=== PATIENT | female | born 1955 | race Caucasian/White ===

== ENCOUNTER → 2017-04-30 | Outpatient (CLI) | payer OTHER ==
[~2017-04-30] MED LIST: ARTIFICIAL TEA1 EAC1 OPHTHALMIC; CELEXA20 MG PO; ESTRACE0.5 MG PO; HYDROCODON-ACE1 EAC7 PO; LYRICA150 MG PO; LYRICA200 MG PO; NICOTINE TRANSD21 M1 TRANSDERM; ROBAXIN 750 MG750 M1 PO; SPIRIVA INH; SYMBICORT160 MCG/4. INH; TRAZODONE 150150 M1 PO; TRAZODONE HCL50 MG PO; Trazodone HCL PO; WOMEN'S DAILY1 EAC2 PO; XARELTO10 MG PO
[2017-04-30 08:52] LABS: CREATININE 0.8 mg/dL (0.6-1.0)
== END ==
LOC: CAT 08:03
PROVIDERS: Family Medicine
DX: C34.90 Malignant neoplasm of unspecified part of unspecified bronchus or lung (principal)

== ENCOUNTER → 2017-10-20 | Outpatient (CLI) | payer OTHER | LOC: RAD 11:46 | DX: J98.11 Atelectasis (principal); Z85.118 Personal history of other malignant neoplasm of bronchus and lung; Z98.890 Other specified postprocedural states ==

== ENCOUNTER → 2018-03-05 | Outpatient (CLI) | payer OTHER | LOC: RAD 10:31 | DX: Z12.31 Encounter for screening mammogram for malignant neoplasm of breast (principal) ==

== ENCOUNTER → 2018-07-22 | Outpatient (CLI) | payer OTHER | LOC: NUC 09:04 | DX: R10.11 Right upper quadrant pain (principal) ==

== ENCOUNTER → 2018-07-28 | Outpatient (CLI) | payer OTHER ==
[2018-07-28 10:55] LABS: CREATININE 0.8 mg/dL (0.6-1.0)
== END ==
LOC: CAT 09:53
PROVIDERS: Nurse Practitioner
DX: J43.9 Emphysema, unspecified (principal); Z85.118 Personal history of other malignant neoplasm of bronchus and lung

== ENCOUNTER 2018-10-09 11:31 | Emergency (ER) | payer OTHER ==
[~2018-10-09] VITALS: Ht 165.1 cm; Wt 69.8 kg
[~2018-10-09 11:31] MED LIST changes: +CELEXA40 MG PO; -TRAZODONE HCL50 MG PO
[2018-10-09] MEDS ORDERED: NORTRIPTYLINE H10 M2 PO (13:13)
[2018-10-09] MEDS ORDERED: XANAX 0.25 MG0.25 MG PO (13:13)
[2018-10-09] MEDS ORDERED: FLEXERIL PO (13:14)
[2018-10-09] MEDS ORDERED: PERCOCET 7.5-31 EACH PO (13:15)
[2018-10-09 13:25] LABS: ANION GAP 6 mmol/L (7-16); BUN 8 mg/dL (7-18); CALCIUM 9.8 mg/dL (8.5-10.1); CHLORIDE 97 mmol/L (98-107); CO2 31 mmol/L (21-32); CREATININE 0.7 mg/dL (0.6-1.0); GLUCOSE 95 mg/dL (74-106); SODIUM 134 mmol/L (136-145)
[2018-10-09 13:29] LABS: ABSOLUTE NEUTROPHILS 6.5 thou/uL (1.4-8.2); BASOPHILS 0.5 % (0.0-2.0); EOSINOPHILS 1.3 % (0.0-3.0); HEMATOCRIT 39.1 % (37.0-47.0); HEMOGLOBIN 13.2 gm/dL (12.0-15.0); LYMPHOCYTES 22.8 % (24.0-44.0); MCH 31.6 pg (26.0-34.0); MCHC 33.6 g/dL (28.0-37.0); MCV 93.9 fL (80.0-100.0); MONOCYTES 8.6 % (1.0-8.0); PLATELET COUNT 261 thou/uL (150-400); POLYS 66.8 % (36.0-66.0); RBC 4.17 mil/uL (4.20-5.00); RDW 13.9 % (10.5-14.5); WBC 9.7 thou/uL (4.0-11.0)
[2018-10-09 13:34] LABS: TROPONIN-I <0.06 ng/mL (<0.06)
--- NOTE | 2018-10-09 13:41 | EKG ---
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
[2018-10-09 15:44] VITALS: BP 147/88
== END 2018-10-09 15:45 | disposition home or self-care (01) ==
LOC: ER 11:31
PROVIDERS: Emergency Medicine
DX: R07.89 Other chest pain (principal); Z96.652 Presence of left artificial knee joint; Z98.890 Other specified postprocedural states; Z90.49 Acquired absence of other specified parts of digestive tract; Z86.718 Personal history of other venous thrombosis and embolism

== ENCOUNTER 2019-01-21 05:27 | Day surgery (SDC) | payer OTHER ==
[~2019-01-21] VITALS: Ht 167.6 cm; Wt 54.4 kg
[~2019-01-21 05:27] MED LIST changes: +FLEXERIL PO; +NORTRIPTYLINE H10 M2 PO; +PERCOCET 7.5-31 EACH PO; +VENTOLIN HFA 1818 GM INH; +XANAX 0.25 MG0.25 MG PO
[2019-01-21 07:30] VITALS: BP 139/79
--- NOTE | 2019-01-25 06:14 | O ---
[facility] [place] [address] OPERATIVE REPORT Name: FLIP GERBER Room #: DEP [facility].#: [id number] Admission: 01/21/19 ������������������ Attend Phys: Ulises Umanzor MD Discharge: 01/21/19 ������������������ Date of : 53 Report #: [id number] THIS REPORT FOR: //name// CC: Candido Lincoln DATE OF SERVICE: 01/21/2019 CLINICAL TRIAL ASSOCIATE: None. PREOPERATIVE DIAGNOSIS: Bilateral upper lid ptosis with superior visual field defects both eyes. POSTOPERATIVE DIAGNOSIS: Bilateral upper lid ptosis with superior visual field defects both eyes. OPERATION PERFORMED: Bilateral upper lid functional ptosis repair. CLINICAL TRIAL ASSOCIATE: None. ANESTHESIA: Local with IV sedation. COMPLICATIONS: None. INDICATIONS FOR PROCEDURE: This patient has bilateral upper lid ptosis with superior visual field loss both eyes. Visual field testing demonstrates dense superior visual defects. Retesting with the upper lid elevated shows an improvement in visual field loss of over 30% and in excess of 12 degrees. The current procedure is being undertaken in order to improve the patient's visual function. Informed consent was obtained to include but not limited to the risk of loss of vision, bleeding, infection, scarring, failure to improve the problem and need for further surgery, such as adjustment of lid height. DESCRIPTION OF PROCEDURE: The patient was taken to the operating room, where 2% Xylocaine with epinephrine mixed with equal parts of 0.75% Marcaine with Wydase was administered transcutaneously to each upper lid. The patient was then prepped and draped in the usual sterile fashion. An upper lid crease incision was then made bilaterally and the dissection was carried down until the orbital septum was identified. The orbital septum was then cleared and the preaponeurotic fat identified. The levator aponeurosis was [facility] [address] [place] [address] OPERATIVE REPORT Name: FLIP GERBER Room #: DEP [facility]#: [id number] Admission: 01/21/19 ������������������ Attend Phys: Ulises Umanzor MD Discharge: 01/21/19 ������������������ Date of : 53 Report #: [id number] then disinserted from the anterior surface of the tarsal plate and dissected free in the avascular Donis's muscle plane. The aponeurosis was then advanced and reattached to the anterior surface of the tarsal plate with interrupted mattress 6-0 Novafil sutures on each side, adjusting for height and contour. The redundant aponeurosis was then amputated. The incision was then closed with multiple interrupted 6-0 chromic sutures that were used to recreate an upper lid crease. The skin was closed with a running 6-0 plain gut suture. The wound was then cleaned and dressed with ophthalmic antibiotic ointment followed by a Telfa pad. The patient was transported to the recovery area, having tolerated the procedure well with no anesthesia or operative complications being noted. ��������������������������������������������� <ELECTRONICALLY SIGNED> ���������������������������������������� By: Ulises Umanzor MD ��������������������������������������������� 01/25/19 0614 0809 Ulises Umanzor MD /nt
== END 2019-01-21 08:50 | disposition home or self-care (01) ==
LOC: OR 05:27 → TBA 05:28 → OR 08:50
DX: H02.413 Mechanical ptosis of bilateral eyelids (principal); H53.462 Homonymous bilateral field defects, left side; H53.461 Homonymous bilateral field defects, right side; J43.9 Emphysema, unspecified; F32.9 Major depressive disorder, single episode, unspecified; F41.9 Anxiety disorder, unspecified; G89.29 Other chronic pain; M54.9 Dorsalgia, unspecified; Z87.891 Personal history of nicotine dependence; Z85.118 Personal history of other malignant neoplasm of bronchus and lung; Z90.49 Acquired absence of other specified parts of digestive tract; Z79.899 Other long term (current) drug therapy; Z96.652 Presence of left artificial knee joint; Z86.718 Personal history of other venous thrombosis and embolism; Z79.01 Long term (current) use of anticoagulants
CPT/HCPCS: 50010; 50101; 50386; 50398; 51636; 56528; 56531; 62110; 62850; 70005

== ENCOUNTER 2019-03-01 08:54 | Inpatient (IN) | payer OTHER ==
[~2019-03-01] VITALS: Ht 167.6 cm; Wt 53.1 kg
--- NOTE | ~2019-03-01 | O ---
[facility] [place] [address] OPERATIVE REPORT Name: FLIP GERBER Room #: 150-1 ADM IN M.R.#: [id number] Admission: 05/12/19 Attend Phys: Melvin Castellanos MD Discharge: Date of : 53 Report #: [id number] THIS REPORT FOR: //name// CC: Ronny Castellanos DATE OF SERVICE: 05/12/2019 PREOPERATIVE DIAGNOSIS: Right knee osteoarthritis. POSTOPERATIVE DIAGNOSIS: Right knee osteoarthritis. PROCEDURE: Right total knee arthroplasty using Navio robotic assistance. SURGEON: Melvin Castellanos MD. HOSPICE CARE TRANSITIONS COORDINATOR: Martha Coello PA-C. ANESTHESIA: LMA with an adductor canal block. INDICATIONS FOR HOSPICE CARE TRANSITIONS COORDINATOR: Throughout the case, extensive retraction and manipulation of knee was required. This was afforded to me by my farm assistant. IMPLANTS: [employer] Journey II Oxinium BCS size 3 femur, size 3 tibia, size 10 polyethylene and size 32 patella. TOURNIQUET TIME: 56 minutes. ESTIMATED BLOOD LOSS: 25 mL. COMPLICATIONS: None. SPECIMENS: None. CONDITION UPON LEAVING THE OPERATING ROOM: Stable. INDICATIONS FOR PROCEDURE: The patient is a 64-year-old female with right knee osteoarthritis. She had failed conservative measures for this and after discussion with her, she elected for right total knee arthroplasty. DESCRIPTION OF PROCEDURE: Risks, benefits, alternatives, complications were discussed in detail with the patient including, but not limited to risk of anesthesia, risk of damage to nerves, arteries, blood vessels, risk for infection, bleeding, risk for continued knee pain, need for reoperation. Informed consent was obtained from the patient. Right knee was appropriately marked in the preoperative holding area. IV Ancef was given for preoperative [address] [address] OPERATIVE REPORT Name: FLIP GERBER Room #: 150-1 ADM IN M.R.#: [id number] Admission: 05/12/19 Attend Phys: Melvin Castellanos MD Discharge: Date of : 53 Report #: [id number] antibiotics. She was brought to the operating room and placed in supine position on operating room table. LMA anesthesia was induced without complication. Tourniquet was placed on the right thigh. Right lower extremity was prepped and draped in normal sterile fashion. Timeout was performed properly identifying the patient and procedure as well as instrumentation. All in the operating room were in agreement. Right lower extremity was exsanguinated, tourniquet was inflated. Tourniquet time was 56 minutes. Standard midline approach to knee was made with 10 blade through the skin. Dissection was taken down sharply to the fascia and deep flaps were developed medially and laterally. Fresh 10 blade was used to make a medial parapatellar arthrotomy and the knee was inspected. There was severe tricompartment osteoarthritis. ACL and PCL were removed sharply. Reference pins were placed in the femur and the tibia of the knee was digitally mapped using the [employer] robotic system. Intraoperative plan was made and we sized a size 3 femur, a size 3 tibia with a size 10 spacer. After acceptance of the intraoperative plan, the distal femoral cut was made with the Navio bur. The cutting block for the size 3 femur was then placed and the chamfer cuts were made. Attention was turned to the tibia. Remainder of the menisci removed with Bovie cautery. Tibial resection guide was pinned into place using the Navio for placement of the guide. Tibial resection was made. After this, flexion and extension gaps were checked and found to have good balance in flexion and extension both medially and laterally. Tibia was sized, found to be a size 3. Size 3 tibial trial was placed, size 3 femoral trial was placed and the box cut was made. This was then trialled with size 9 and then a size 10 polyethylene. The size 10 polyethylene demonstrated a millimeter of medial laxity with 2-3 mm of lateral laxity throughout range of motion. It was felt this was acceptable, 9 mm was then resected from the posterior surface of the patella and a size 32 patellar trial was placed. Knee was taken through range of motion, found to have good patellar tracking. After this, trial components were removed. Bony ends were thoroughly irrigated with normal saline. A final size 3 tibia, size 3 Journey II BCS Oxinium femur and a size 32 patella were cemented into place using standard cementation techniques. While the cement cured, a periarticular injection consisting of morphine, ropivacaine, epinephrine, Toradol placed around the knee joint capsule. After the cement cured, tourniquet was deflated. Hemostasis was obtained with Bovie cautery. Final size 10 polyethylene was placed. A gram of vancomycin was placed deep in the joint. The fascia was closed with 0 Vicryl, skin was closed with 2-0 Vicryl, 3-0 Monocryl. Dermabond and a JESSICA dressing was applied. The patient tolerated this procedure well and went to recovery room under care of anesthesia postoperatively. By: 0933 1020 Melvin Castellanos MD /rickey
[2019-05-03 09:00] LABS: URINE BILIRUBIN NEGATIVE (Negative); URINE BLOOD NEGATIVE (Negative); URINE CLARITY CLEAR; URINE COLOR YELLOW; URINE GLUCOSE-RANDOM* NEGATIVE (Negative); URINE KETONES NEGATIVE (Negative); URINE LEUKOCYTES-REFLEX NEGATIVE (Negative); URINE NITRITE-REFLEX NEGATIVE (Negative); URINE PROTEIN (DIPSTICK) NEGATIVE (Negative); URINE UROBILINOGEN 0.2 E.U./dl (0.2-1.0)
[2019-05-03 09:01] LABS: HEMATOCRIT 43.1 % (37.0-47.0); HEMOGLOBIN 14.4 gm/dL (12.0-15.0); MCH 31.1 pg (26.0-34.0); MCHC 33.3 g/dL (28.0-37.0); MCV 93.5 fL (80.0-100.0); RBC 4.61 mil/uL (4.20-5.00); RDW 13.7 % (10.5-14.5)
[2019-05-03 09:07] LABS: CALCIUM 9.5 mg/dL (8.5-10.1); CREATININE 0.8 mg/dL (0.6-1.0); POTASSIUM 4.6 mmol/L (3.5-5.1)
[2019-05-03 09:10] LABS: INR 1.1; PROTIME 11.2 Seconds (9.3-11.4)
[2019-05-12 06:21] VITALS: BP 135/83
[2019-05-12 12:46] VITALS: BP 126/79
--- NOTE | 2019-05-12 14:23 | NUR ---
64 YO FEMALE TRANSFERED FROM PACU. A&OX4, IV INTACT IN L FA. RACHEL YAN AND SCD'S IN PLACE. JESSICA DRSG IS C/D/I. ORIENTED PT TO ROOM/ CALL LIGHT W/I REACH. NUMBNESS TO R TOES NOTED. WILL CONT POC.
--- NOTE | 2019-05-12 16:53 | NUR ---
ASSESSMENT-PT WILL STAY WITH HER SIGNIFICANT OTHER BOO AT DC. PT HAS A ROLLER WALKER AT HOME FROM WHEN SHE HAD HER OTHER KNE DONE IN 2013. PT HAS HOME 02 FROM [facility] & has a portable tank. pt has an outpt appt set-up for fri 3BUT SHE SAYS THIS MAY NEED TO BE CHANGED BECAUSE SHE WAS ORIGINALLY SCHEDULED TO HAVE SURGERY NEXT WEEK BUT IT Was MOVED UP TO TODAY. INFORMED HER TO CHECK WITH THE DR TOMORROW ABOUT HER OUTPT APPT FOR THERAPY. FOLLOWING TO ASSIST WITH DC PLANNING.
[2019-05-12 16:57] VITALS: BP 128/84
[2019-05-12 19:51] VITALS: BP 135/84
[2019-05-12 23:33] VITALS: BP 108/66
[2019-05-13 04:54] VITALS: BP 108/71
[2019-05-13 05:36] LABS: HEMATOCRIT 28.8 % (37.0-47.0); HEMOGLOBIN 9.7 gm/dL (12.0-15.0); MCH 31.5 pg (26.0-34.0); MCHC 33.7 g/dL (28.0-37.0); MCV 93.5 fL (80.0-100.0); RBC 3.09 mil/uL (4.20-5.00); RDW 13.4 % (10.5-14.5); WBC 10.7 thou/uL (4.0-11.0)
[2019-05-13 07:40] VITALS: BP 121/77
[2019-05-13] MEDS ORDERED: ELIQUIS2.5 MG PO (12:56)
[2019-05-13 16:36] VITALS: BP 124/68
[2019-05-13 19:22] VITALS: BP 145/93
--- NOTE | 2019-05-13 19:48 | NUR ---
ASSUMED CARE OF PATIENT AT 0715, PATIENT ALERT AND ORIENTED X 4. PATIENT UP WITH ASSIST X 1 WITH WALKER. PATIENT HAD RIGHT TKR, JESSICA DRESSING IN PLACE, C/D/I. PATIENT WORKED WITH PHYSICAL THERAPY/LIZ, OK TO DISCHARGE TO HOME. PATIENT'S PAIN LEVEL WENT UP, BLOCK WORE OFF. SHIRLEY HERE THIS AFTERNOON, AND WROTE DISCHARGE ORDER TO HOME, THIS RN INFORMED SHIRLEY/TERMITE TREATER HELPER THAT PATIENT HAVING TOO MUCH PAIN, UNABLE TO DISCHARGE, SHE LEFT DISCHARGE ORDERS IN COMPUTER AND STATES PATIENT COULD GO HOME IN AM, SCRIPTS LEFT IN CHART FOR DISCHARGE. PATIENT HAS LEFT FOREARM IV IN PLACE, IV FLUIDS D/C AFTER BAG ENDED THIS AM. PATIENT RECEIVED MORPHINE 2 MG IV X 2 AND ALERNATED WITH OXYCODONE 1 TABLET, PAIN LEVEL STARTING TO IMPROVE BY THE END OF THE SHIFT, ICE PACKS USED MOST OF THE DAY FOR PAIN RELIEF. WILL CONTINUE TO MONITOR.
[2019-05-13 23:43] VITALS: BP 140/78
[2019-05-14 05:49] LABS: HEMOGLOBIN 10.9 gm/dL (12.0-15.0); MCH 31.6 pg (26.0-34.0); MCHC 33.9 g/dL (28.0-37.0); MCV 93.4 fL (80.0-100.0); RBC 3.43 mil/uL (4.20-5.00); RDW 13.9 % (10.5-14.5); WBC 11.5 thou/uL (4.0-11.0)
[2019-05-14 06:05] VITALS: BP 144/87
--- NOTE | 2019-05-14 07:41 | NUR ---
MANAGEMENT PROFESSIONAL NOTE. ASSUMED CARE OF PT @1900. ASSESSMENT COMPLETED. PT C/O OF PAIN IN RIGHT KNEE AND WAS MEDICATED APPROPRAITELY. RIGHT KNEE LOOKS SWOLLEN, BRUISED WITH NO DRAINAGE. PT IS ABLE TO AMBULATE TO THE BATHROOM WITH A WALKER. PAIN WAS CONTROLLED OVERNIGHT. FALL PREC IN PLACE. CALL COFFEY WITHIN REACH
[2019-05-14 07:54] VITALS: BP 146/99
[2019-05-14 08:00] VITALS: BP 146/99
[2019-05-14 16:23] VITALS: BP 146/99
--- NOTE | 2019-05-14 17:44 | NUR ---
PATIENT DISCHARGED HOME AT THIS TIME. SHE IS ALERT ORIENTED X4. SHE IS STILL HAVING PAIN TO RIGHT KNEE. EDUCATED ON HOW TO MANAGE PAIN TO THAT KNEE. DAUGHTER HERE AND EDUCATED BOTH OF THEM. WILL CONT WIHT PLAN OF CARE.
== END 2019-05-14 17:46 | disposition home or self-care (01) | DRG 470 ==
LOC: OR 08:54 → EDSTATUS 08:55 → PRE 09:04 → TBA 05-12 05:54 → 4E 05-12 05:54 → PRE 05-12 08:18 → 4E 05-12 12:38 → PRE 05-12 15:33 → ENTRNSPT 05-14 16:46 → 4E 05-14 17:46 → PRE 05-17 08:21
PROVIDERS: ADMIT Orthopaedic Surgery
PROC: 0SRC069 Replacement of Right Knee Joint with Oxidized Zirconium on Polyethylene Synthetic Substitute, Cemented, Open Approach (ICD-10-PCS; principal; 2019-05-12)
PROC: 8E0Y0CZ Robotic Assisted Procedure of Lower Extremity, Open Approach (ICD-10-PCS; principal; 2019-05-12)
DX: M17.11 Unilateral primary osteoarthritis, right knee (principal); Z91.048 Other nonmedicinal substance allergy status; Z79.899 Other long term (current) drug therapy
CPT/HCPCS: 10783; 50010; 50101; 50415; 50954; 51130; 51225; 53000; 53078; 54118; 55372; 56527; 56528; 57095; 57103; 57110; 57127; 57179; 62110; 62900; 64043; 65060; 70005

== ENCOUNTER → 2019-07-07 | Outpatient (CLI) | payer OTHER ==
[~2019-07-07] MED LIST changes: +ELIQUIS2.5 MG PO; +LEVAQUIN 500 M500 M3 PO
[2019-07-07 16:47] LABS: CREATININE 0.7 mg/dL (0.6-1.0)
== END ==
LOC: CAT 15:55
PROVIDERS: Nurse Practitioner
DX: J43.9 Emphysema, unspecified (principal); I25.10 Atherosclerotic heart disease of native coronary artery without angina pectoris; K86.89 Other specified diseases of pancreas; M85.80 Other specified disorders of bone density and structure, unspecified site; M47.814 Spondylosis without myelopathy or radiculopathy, thoracic region; Z85.118 Personal history of other malignant neoplasm of bronchus and lung

== ENCOUNTER 2019-08-05 06:19 | Day surgery (SDC) | payer OTHER ==
[~2019-08-05] VITALS: Ht 167.6 cm; Wt 54.0 kg
--- NOTE | ~2019-08-05 | O ---
[facility] [address] OPERATIVE REPORT Name: FLIP GERBER Room #: REG [facility]#: [id number] Admission: 08/05/19 Attend Phys: Ulises Umanzor MD Discharge: Date of : 53 Report #: [id number] THIS REPORT FOR: //name// CC: Ronny Umanzor DATE OF SERVICE: 08/05/2019 SURGEON: Ulises Umanzor MD IT OPERATIONS MANAGER: None. PREOPERATIVE DIAGNOSIS: Bilateral upper lid dermatochalasia with superior visual field defect. POSTOPERATIVE DIAGNOSIS: Bilateral upper lid dermatochalasia with superior visual field defect. OPERATION PERFORMED: Bilateral upper lid functional blepharoplasty. ANESTHESIA: Local with IV sedation. COMPLICATIONS: None. INDICATIONS FOR SURGERY: This patient has acquired upper lid dermatochalasia with superior visual field loss both eyes because of excessive upper lid tissues to include skin and fat. Visual field testing demonstrates dense superior visual defects. Retesting with the upper lid elevated shows an improvement in visual field loss of over 30% and in excess of 12 degrees. The current procedures are undertaken in order to improve the patient's visual function. Informed consent was obtained to include but not limited to the loss of vision, bleeding, infection, scarring, failure to improve the problem and need for further surgery. DESCRIPTION OF OPERATION: The patient was taken to the operating room, where 2% Xylocaine with epinephrine mixed with equal parts of 0.75% Marcaine with Wydase was administered transcutaneously to each upper lid. The patient was then prepped and draped in the usual sterile fashion and a skin-marking pen was then utilized to outline an upper lid crease that was symmetrical on each side. Graefe forceps were then used to quantitate the redundant upper lid skin and it was similarly outlined. The incisions were then made with Vijay scissors and a skin-muscle flap removed from each side with high-temp cautery. Hemostasis was achieved with the monopolar cautery as it was throughout the case. The [address] [address] OPERATIVE REPORT Name: MANISHA GERBERMIKE Hernandez Room #: REG [facility].#: [id number] Admission: 08/05/19 Attend Phys: Ulises Umanzor MD Discharge: Date of : 53 Report #: [id number] orbital septum was then identified and the central and medial fat pads were inspected. The redundant soft tissue was then sculpted with the monopolar cautery. The upper lid crease was then reformed with tightening of the pretarsal orbicularis muscle. The upper lid crease was then further reformed with multiple interrupted 6-0 chromic sutures. The skin was then closed with a running 6-0 plain gut suture. The wound was then cleaned and dressed with ophthalmic antibiotic ointment and a nonstick dressing. The patient was transported to the recovery area, where cold compresses were applied, having tolerated the procedure well with no anesthetic or operative complications being noted. By: Ulises Umanzor MD /rickey
[2019-08-05 07:11] VITALS: BP 139/84
== END 2019-08-05 09:36 | disposition home or self-care (01) ==
LOC: OR 06:19 → TBA 09:08 → OR 09:36
DX: H02.834 Dermatochalasis of left upper eyelid (principal); H02.831 Dermatochalasis of right upper eyelid; H53.462 Homonymous bilateral field defects, left side; H53.461 Homonymous bilateral field defects, right side; J43.9 Emphysema, unspecified; F32.9 Major depressive disorder, single episode, unspecified; F41.9 Anxiety disorder, unspecified; Z87.891 Personal history of nicotine dependence; Z90.49 Acquired absence of other specified parts of digestive tract; Z98.890 Other specified postprocedural states; Z90.710 Acquired absence of both cervix and uterus; Z96.651 Presence of right artificial knee joint; Z79.899 Other long term (current) drug therapy; Z85.118 Personal history of other malignant neoplasm of bronchus and lung
CPT/HCPCS: 50010; 50101; 50386; 50398; 51636; 56531; 62110; 62850; 70005

== ENCOUNTER → 2019-09-16 | Outpatient (CLI) | payer OTHER | LOC: NUC 08:04 | DX: R00.2 Palpitations (principal); I48.91 Unspecified atrial fibrillation; J44.9 Chronic obstructive pulmonary disease, unspecified; Z87.891 Personal history of nicotine dependence ==

== ENCOUNTER → 2019-10-05 | Outpatient (CLI) | payer OTHER | LOC: SJCVCIMAG 09:18 | DX: R06.09 Other forms of dyspnea (principal); R00.2 Palpitations; I10 Essential (primary) hypertension; J44.9 Chronic obstructive pulmonary disease, unspecified; Z87.891 Personal history of nicotine dependence; Z91.048 Other nonmedicinal substance allergy status; Z85.118 Personal history of other malignant neoplasm of bronchus and lung ==

== ENCOUNTER → 2020-04-04 | Outpatient (CLI) | payer OTHER | LOC: SJCVC 11:12 | PROVIDERS: ATTEND Internal Medicine Cardiovascular Disease | DX: R94.31 Abnormal electrocardiogram [ECG] [EKG] (principal); I47.1 Supraventricular tachycardia; I10 Essential (primary) hypertension; J44.9 Chronic obstructive pulmonary disease, unspecified; Z79.899 Other long term (current) drug therapy; Z87.891 Personal history of nicotine dependence ==

== ENCOUNTER → 2020-05-02 | Outpatient (CLI) | payer OTHER | LOC: CAT 15:51 | PROVIDERS: ATTEND Internal Medicine Cardiovascular Disease | DX: Z13.6 Encounter for screening for cardiovascular disorders (principal); I25.10 Atherosclerotic heart disease of native coronary artery without angina pectoris; E78.00 Pure hypercholesterolemia, unspecified ==

== ENCOUNTER → 2020-05-03 | Outpatient (CLI) | payer OTHER | LOC: SJCVC 11:12 | PROVIDERS: ATTEND Internal Medicine Cardiovascular Disease | DX: I25.10 Atherosclerotic heart disease of native coronary artery without angina pectoris (principal); R94.31 Abnormal electrocardiogram [ECG] [EKG]; I10 Essential (primary) hypertension; I47.1 Supraventricular tachycardia; J44.9 Chronic obstructive pulmonary disease, unspecified; Z79.899 Other long term (current) drug therapy; Z87.891 Personal history of nicotine dependence ==

== ENCOUNTER → 2020-11-15 | Outpatient (CLI) | payer OTHER | LOC: SJCVC 14:25 | PROVIDERS: ATTEND Internal Medicine Cardiovascular Disease | DX: I47.1 Supraventricular tachycardia (principal); R94.31 Abnormal electrocardiogram [ECG] [EKG]; I25.10 Atherosclerotic heart disease of native coronary artery without angina pectoris; J44.9 Chronic obstructive pulmonary disease, unspecified; I10 Essential (primary) hypertension; Z98.890 Other specified postprocedural states; Z88.8 Allergy status to other drugs, medicaments and biological substances; Z79.82 Long term (current) use of aspirin; Z79.899 Other long term (current) drug therapy; Z87.891 Personal history of nicotine dependence; Z82.49 Family history of ischemic heart disease and other diseases of the circulatory system ==

== ENCOUNTER → 2021-03-22 | Outpatient (CLI) | payer OTHER | LOC: MRI 08:38 | PROVIDERS: ATTEND Nurse Practitioner | DX: M47.817 Spondylosis without myelopathy or radiculopathy, lumbosacral region (principal); M51.27 Other intervertebral disc displacement, lumbosacral region; M48.07 Spinal stenosis, lumbosacral region; M47.815 Spondylosis without myelopathy or radiculopathy, thoracolumbar region ==

== ENCOUNTER → 2021-04-26 | Outpatient (CLI) | payer OTHER | LOC: RAD 13:49 | DX: M47.816 Spondylosis without myelopathy or radiculopathy, lumbar region (principal); I71.4 Abdominal aortic aneurysm, without rupture; M51.36 Other intervertebral disc degeneration, lumbar region; M25.552 Pain in left hip ==

== ENCOUNTER → 2021-04-30 | Outpatient (CLI) | payer OTHER | LOC: MRI 07:43 | DX: M16.0 Bilateral primary osteoarthritis of hip (principal); M51.36 Other intervertebral disc degeneration, lumbar region; M51.37 Other intervertebral disc degeneration, lumbosacral region; M25.852 Other specified joint disorders, left hip ==

== ENCOUNTER → 2021-07-19 | Outpatient (CLI) | payer OTHER ==
[~2021-07-19] VITALS: Ht 167.6 cm; Wt 47.2 kg
[~2021-07-19] MED LIST changes: +ASA81BEC PO; +BYSTOLIC10 MG PO; +NEURONTIN100 MG PO; +NORVASC5 MG PO; +PERCOCET 7.5-31 EAC1 PO; +ROPINIROLE HCL0.5 MG PO
[2021-07-19 11:06] VITALS: BP 137/85
--- NOTE | 2021-07-19 12:01 | NUR ---
Pain Clinic Assessment: 1. History of Osteoarthritis: NONE History of Rheumatoid Arthritis: NONE 2. Height: 5 ft. 6 in. 167.6 cm. Weight: 104.0 lb. oz. 47.174 kg. Patient's BMI: 16.8 3. Vital Signs: BP: 137/85 Pulse: 65 Resp: 14 Temp: 02 Sat: 95 ECG Mon: 4. Pain Intensity: 8 5. Fall Risk: Dizziness: N Needs help standing or walking: N Fallen in the last 3 months: N Fall risk comments: 6. Patient on Blood Thinner: None 7. History of Hypertension: Y 8. Opioid Therapy greater than 6 weeks: Opiate Contract Signed: 9. Risk Assessment Tool Provided: 1 LOW RISK 10. Functional Assessment Tool: 11. Recreational Drug Use: Never Drug Type: Tobacco Use: Former Smoker Tobacco Type: Cigarettes Amount or Packs/day: How Many Years: Alcohol Use: Yes Frequency: Weekly Quant: 1
== END ==
LOC: PAIN 09:52
PROVIDERS: ATTEND Anesthesiology Pain Medicine
DX: M54.16 Radiculopathy, lumbar region (principal); G96.191 Perineural cyst; M79.605 Pain in left leg; J44.9 Chronic obstructive pulmonary disease, unspecified; I25.10 Atherosclerotic heart disease of native coronary artery without angina pectoris; I10 Essential (primary) hypertension; Z88.8 Allergy status to other drugs, medicaments and biological substances; Z79.82 Long term (current) use of aspirin; Z79.899 Other long term (current) drug therapy

== ENCOUNTER → 2021-07-26 | Outpatient (CLI) | payer OTHER ==
[~2021-07-26] VITALS: Ht 167.6 cm; Wt 49.0 kg
[2021-07-26 09:43] VITALS: BP 125/78
--- NOTE | 2021-07-26 09:50 | NUR ---
Pain Clinic Assessment: 1. History of Osteoarthritis: NONE History of Rheumatoid Arthritis: NONE 2. Height: 5 ft. 6 in. 167.6 cm. Weight: 108.0 lb. oz. 48.988 kg. Patient's BMI: 17.4 3. Vital Signs: BP: 125/78 Pulse: 67 Resp: 14 Temp: 02 Sat: 97 ECG Mon: 4. Pain Intensity: 8 5. Fall Risk: Dizziness: N Needs help standing or walking: N Fallen in the last 3 months: Y Fall risk comments: 6. Patient on Blood Thinner: None 7. History of Hypertension: Y 8. Opioid Therapy greater than 6 weeks: Opiate Contract Signed: 9. Risk Assessment Tool Provided: 1 LOW RISK 10. Functional Assessment Tool: 11. Recreational Drug Use: Never Drug Type: Tobacco Use: Former Smoker Tobacco Type: Amount or Packs/day: How Many Years: Alcohol Use: No Frequency: Quant:
== END | disposition home or self-care (01) ==
LOC: PAIN 08:31
PROVIDERS: ATTEND Anesthesiology Pain Medicine
DX: M54.16 Radiculopathy, lumbar region (principal); G89.29 Other chronic pain; Z98.890 Other specified postprocedural states; Z79.899 Other long term (current) drug therapy; Z79.82 Long term (current) use of aspirin

== ENCOUNTER → 2021-09-27 | Outpatient (CLI) | payer OTHER ==
[~2021-09-27] VITALS: Ht 167.6 cm; Wt 46.7 kg
[2021-09-27 10:35] VITALS: BP 139/85
--- NOTE | 2021-09-27 10:46 | NUR ---
Pain Clinic Assessment: 1. History of Osteoarthritis: NONE History of Rheumatoid Arthritis: NONE 2. Height: 5 ft. 6 in. 167.6 cm. Weight: 103.0 lb. oz. 46.720 kg. Patient's BMI: 16.6 3. Vital Signs: BP: 139/85 Pulse: 72 Resp: 14 Temp: 02 Sat: 96 ECG Mon: 4. Pain Intensity: 7 5. Fall Risk: Dizziness: N Needs help standing or walking: N Fallen in the last 3 months: N Fall risk comments: 6. Patient on Blood Thinner: None 7. History of Hypertension: Y 8. Opioid Therapy greater than 6 weeks: Opiate Contract Signed: 9. Risk Assessment Tool Provided: 1 LOW RISK 10. Functional Assessment Tool: 11. Recreational Drug Use: Never Drug Type: Tobacco Use: Former Smoker Tobacco Type: Amount or Packs/day: How Many Years: Alcohol Use: No Frequency: Quant:
== END | disposition home or self-care (01) ==
LOC: PAIN 09:04
PROVIDERS: ATTEND Anesthesiology Pain Medicine
DX: M54.16 Radiculopathy, lumbar region (principal); S34.21XA Injury of nerve root of lumbar spine, initial encounter; I10 Essential (primary) hypertension; Z98.890 Other specified postprocedural states; Z79.899 Other long term (current) drug therapy; Z87.891 Personal history of nicotine dependence; X58.XXXA Exposure to other specified factors, initial encounter; Y93.89 Activity, other specified; Y92.89 Other specified places as the place of occurrence of the external cause; Y99.8 Other external cause status

== ENCOUNTER 2021-11-07 04:35 | Emergency (ER) | payer OTHER ==
[~2021-11-07] VITALS: Ht 167.6 cm; Wt 46.7 kg
[2021-11-07 05:28] LABS: ANION GAP 6 mmol/L (7-16); BUN 10 mg/dL (7-18); CALCIUM 8.8 mg/dL (8.5-10.1); CHLORIDE 102 mmol/L (98-107); CO2 30 mmol/L (21-32); CREATININE 0.6 mg/dL (0.6-1.0); GLUCOSE 155 mg/dL (74-106); SODIUM 138 mmol/L (136-145)
[2021-11-07 05:30] LABS: ABSOLUTE NEUTROPHILS 9.4 thou/uL (1.4-8.2); BASOPHILS 0.5 % (0.0-2.0); HEMOGLOBIN 13.3 gm/dL (12.0-15.0); LYMPHOCYTES 14.8 % (24.0-44.0); MCH 33.4 pg (26.0-34.0); MCHC 34.1 g/dL (28.0-37.0); MCV 97.9 fL (80.0-100.0); MONOCYTES 6.7 % (1.0-8.0); PLATELET COUNT 331 thou/uL (150-400); RBC 3.98 mil/uL (4.20-5.00); RDW 14.3 % (10.5-14.5); WBC 12.2 thou/uL (4.0-11.0)
[2021-11-07 05:39] LABS: ALBUMIN 3.4 g/dL (3.4-5.0); LIPASE < 10 U/L (73-393); SGOT 23 U/L (15-37); SGPT 32 U/L (14-59); TOTAL BILIRUBIN 0.2 mg/dL (0.2-1.0); TOTAL PROTEIN 6.6 g/dL (6.4-8.2)
--- NOTE | 2021-11-07 07:18 | EKG ---
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 : 1955 Requested By: Josep Rae Order Number: [id number] MD: Geoffrey Naylor Measurements Intervals [place] Rate: 82 P: 86 VA: 142 QRS: 69 QRSD: 97 T: 84 QT: 380 QTc: 444 Interpretive Statements Sinus rhythm Anteroseptal infarct, age indeterminate Compared to ECG 10/09/2018 12:12:19 Myocardial infarct finding now present Electronically Signed On 11-07-2021 7:18:07 [employer] DEVELOPER by Geoffrey Naylor [email or web address] <ELECTRONICALLY SIGNED> By: Geoffrey Naylor MD, [facility] 11/07/21 0718 0449 0449 Geoffrey Naylor MD, FACC /EPI
[2021-11-07] MEDS ORDERED: ZOFRAN ODT4 MG PO (07:34)
[2021-11-07] MEDS ORDERED: PEPCID20 MG PO (07:34)
[2021-11-07 07:48] VITALS: BP 173/90
== END 2021-11-07 07:55 | disposition home or self-care (01) ==
LOC: ER 04:35
PROVIDERS: Emergency Medicine
DX: R11.2 Nausea with vomiting, unspecified (principal); R10.13 Epigastric pain; R07.89 Other chest pain; I10 Essential (primary) hypertension; J44.9 Chronic obstructive pulmonary disease, unspecified; I25.10 Atherosclerotic heart disease of native coronary artery without angina pectoris; Z98.890 Other specified postprocedural states; Z79.82 Long term (current) use of aspirin; Z79.899 Other long term (current) drug therapy; Z79.891 Long term (current) use of opiate analgesic; Z91.09 Other allergy status, other than to drugs and biological substances

== ENCOUNTER → 2021-11-15 | Outpatient (CLI) | payer OTHER ==
[~2021-11-15] MED LIST changes: +PEPCID20 MG PO; +ZOFRAN ODT4 MG PO
== END ==
LOC: SJCVCIMAG 10:14
PROVIDERS: ATTEND Internal Medicine Cardiovascular Disease
DX: I08.8 Other rheumatic multiple valve diseases (principal); R93.1 Abnormal findings on diagnostic imaging of heart and coronary circulation; R07.9 Chest pain, unspecified; I47.1 Supraventricular tachycardia; J44.9 Chronic obstructive pulmonary disease, unspecified; I10 Essential (primary) hypertension; I25.10 Atherosclerotic heart disease of native coronary artery without angina pectoris; I71.4 Abdominal aortic aneurysm, without rupture; Z87.891 Personal history of nicotine dependence; Z79.82 Long term (current) use of aspirin; Z79.899 Other long term (current) drug therapy; Z82.49 Family history of ischemic heart disease and other diseases of the circulatory system; Z88.8 Allergy status to other drugs, medicaments and biological substances